=== PATIENT | male | born 1935 | race Caucasian/White ===

== ENCOUNTER 2019-12-03 07:47 | Day surgery (SDC) | payer MEDICARE ==
[~2019-12-03] VITALS: Ht 177.8 cm; Wt 85.3 kg
[~2019-12-03 07:47] MED LIST: ASPIRIN LOW DOS81 M1 PO; ATORVASTATIN CA40 MG PO; DILTIAZEM120 MG PO; DOXAZOSIN4 MG PO; LOSARTAN POTASS50 MG PO; MULTI VIT PO; OMEPRAZOLE10 MG PO
[2019-12-03 10:59] VITALS: BP 160/71
== END 2019-12-03 11:20 | disposition home or self-care (01) ==
LOC: ENDO 07:47 → ORM 09:00 → ENDO 09:55
PROVIDERS: ATTEND Internal Medicine Gastroenterology
PROC: 0D758ZZ Dilation of Esophagus, Via Natural or Artificial Opening Endoscopic (ICD-10-PCS; principal; 2019-12-03)
PROC: 0DB58ZX Excision of Esophagus, Via Natural or Artificial Opening Endoscopic, Diagnostic (ICD-10-PCS; 2019-12-03)
PROC: 0DD48ZX Extraction of Esophagogastric Junction, Via Natural or Artificial Opening Endoscopic, Diagnostic (ICD-10-PCS; 2019-12-03)
PROC: 0CBM8ZX Excision of Pharynx, Via Natural or Artificial Opening Endoscopic, Diagnostic (ICD-10-PCS; 2019-12-03)
DX: K22.2 Esophageal obstruction (principal); J39.2 Other diseases of pharynx; K29.70 Gastritis, unspecified, without bleeding; I10 Essential (primary) hypertension; Z11.59 Encounter for screening for other viral diseases